=== PATIENT | female | born 1995 | race Caucasian/White ===

== ENCOUNTER 2017-10-15 05:42 | Emergency (ER) | payer OTHER ==
[~2017-10-15] VITALS: Ht 167.6 cm; Wt 75.0 kg
[2017-10-15] MEDS ORDERED: NS 1,000 ML IV ONE (07:30)
[2017-10-15 08:05] LABS: BASO % 0.2 % (0.0-1.0); EOS # 0.1 10^3/uL (0.0-0.50); EOS % 1.2 % (0.0-3.0); IMMATURE GRANULOCYTE % 0.2 % (0-0); LYMPH # 1.7 10^3/uL (1.5-6.5); LYMPH % 29.7 % (24.0-44.0); MEAN CORPUSCULAR HGB CONC 34.4 g/dl (32.0-36.5); MEAN CORPUSCULAR VOLUME 84.3 fl (80.0-96.0); MONO # 0.4 10^3/uL (0.0-0.8); MONO % 6.2 % (0.0-5.0); NEUTROPHILS # 3.6 10^3/uL (1.8-7.7); NEUTROPHILS % 62.5 % (36.0-66.0); PLATELET COUNT, AUTOMATED 273 10^3/uL (150-450); WHITE BLOOD COUNT 5.8 10^3/uL (4.0-10.0)
[2017-10-15 08:34] LABS: ALBUMIN 3.8 GM/DL (3.2-5.2); ALBUMIN/GLOBULIN RATIO 1.09 (1.00-1.93); ALKALINE PHOSPHATASE 87 U/L (45-117); ALT/SGPT 22 U/L (12-78); ANION GAP 7 MEQ/L (8-16); AST/SGOT 14 U/L (7-37); BILIRUBIN,DIRECT 0.2 MG/DL (0.0-0.2); BILIRUBIN,TOTAL 0.9 MG/DL (0.2-1.0); BLOOD UREA NITROGEN 5 MG/DL (7-18); CALCIUM LEVEL 9.1 MG/DL (8.5-10.1); CARBON DIOXIDE LEVEL 25 MEQ/L (21-32); CHLORIDE LEVEL 108 MEQ/L (98-107); GLOMERULAR FILTRATION RATE > 60.0 (>60); GLUCOSE, FASTING 93 MG/DL (70-105); POTASSIUM SERUM 3.8 MEQ/L (3.5-5.1); SODIUM LEVEL 140 MEQ/L (136-145); TOTAL PROTEIN 7.3 GM/DL (6.4-8.2)
--- NOTE | 2017-10-15 08:39 | REP ---
Clinical: Abdominal pain. Rule out ectopic . Technique: Transabdominal pelvic ultrasound followed by transvaginal examination for better evaluation of the endometrium and adnexa with color Doppler evaluation of the ovaries. Findings: Heterogenous retroverted uterus measures 7.9 x 4.5 x 5.3 cm. The endometrial complex measures 15 mm thickness. No discrete intrauterine is identified. Bilateral ovaries are normal in appearance and vascularity without evidence for torsion. Right ovary measures 2.3 x 1.2 x 1.7 cm ; R I = 0.50 . Left ovary measures 4.5 x 2.5 x 2.6 cm with 3.1 cm hemorrhagic presumed corpus luteal cyst ; R I = 0.55 . Mild free fluid in the pelvis no adnexal mass lesion identified . Impression: Thickened endometrial complex suggesting decidual reaction without evidence for intrauterine . Differential diagnosis includes missed , early and less likely ectopic cannot be excluded. Correlation with HCG levels required. Signed by Trent Montoya MD 10/15/2017 08:30 A
[2017-10-15 09:54] VITALS: BP 112/66
--- NOTE | 2017-10-15 18:29 | ECGEPIP ---
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
== END 2017-10-15 10:08 | disposition home or self-care (01) ==
LOC: M ED 05:42
DX: O99.89 Other specified diseases and conditions complicating pregnancy, childbirth and the puerperium (principal); R55 Syncope and collapse; Z3A.01 Less than 8 weeks gestation of pregnancy

== ENCOUNTER → 2017-12-13 | Outpatient (CLI) | payer OTHER ==
[2017-12-13 20:25] LABS: BASO % 0.3 % (0.0-1.0); EOS # 0.1 10^3/uL (0.0-0.50); EOS % 1.3 % (0.0-3.0); HEMATOCRIT 36.3 % (36.0-47.0); HEMOGLOBIN 12.5 g/dl (12.0-16.0); IMMATURE GRANULOCYTE % 0.1 % (0-0); LYMPH # 2.3 10^3/uL (1.5-6.5); LYMPH % 28.9 % (24.0-44.0); MEAN CORPUSCULAR HEMOGLOBIN 29.7 pg (27.0-33.0); MEAN CORPUSCULAR HGB CONC 34.4 g/dl (32.0-36.5); MEAN CORPUSCULAR VOLUME 86.2 fl (80.0-96.0); MONO # 0.5 10^3/uL (0.0-0.8); MONO % 6.9 % (0.0-5.0); NEUTROPHILS # 4.9 10^3/uL (1.8-7.7); NEUTROPHILS % 62.5 % (36.0-66.0); PLATELET COUNT, AUTOMATED 264 10^3/uL (150-450); RED BLOOD COUNT 4.21 10^6/uL (4.00-5.40); RED CELL DISTRIBUTION WIDTH 12.1 % (11.5-14.5); WHITE BLOOD COUNT 7.8 10^3/uL (4.0-10.0)
[2017-12-13 23:34] LABS: CHLAMYDIA DNA AMPLIFICATION NEGATIVE (NEGATIVE); GC DNA AMPLIFICATION NEGATIVE (NEGATIVE)
[2017-12-14 09:50] LABS: RUBELLA IgG QUALITATIVE IMMUNE (IMMUNE)
[2017-12-14 09:57] LABS: HBsAg Prenatal NEGATIVE (NEGATIVE)
[2017-12-14 10:25] LABS: HIV 1&2 SCREEN CENTAUR NEGATIVE (NEGATIVE)
== END ==
LOC: M SMT 14:39
DX: Z34.81 Encounter for supervision of other normal pregnancy, first trimester (principal); Z3A.08 8 weeks gestation of pregnancy
CPT/HCPCS: 86762

== ENCOUNTER → 2018-01-07 | Outpatient (CLI) | payer OTHER | LOC: M SMT 11:50 | DX: Z34.82 Encounter for supervision of other normal pregnancy, second trimester (principal) ==

== ENCOUNTER → 2018-03-27 | Outpatient (CLI) | payer OTHER ==
[2018-03-27 13:13] LABS: BASO % 0.1 % (0.0-1.0); EOS # 0.1 10^3/uL (0.0-0.50); EOS % 0.9 % (0.0-3.0); HEMATOCRIT 35.8 % (36.0-47.0); HEMOGLOBIN 11.9 g/dl (12.0-15.5); IMMATURE GRANULOCYTE % 0.3 % (0-3.0); LYMPH # 1.9 10^3/uL (1.5-6.5); LYMPH % 20.8 % (24.0-44.0); MEAN CORPUSCULAR HEMOGLOBIN 29.7 pg (27.0-33.0); MEAN CORPUSCULAR HGB CONC 33.2 g/dl (32.0-36.5); MEAN CORPUSCULAR VOLUME 89.3 fl (80.0-96.0); MONO # 0.5 10^3/uL (0.0-0.8); MONO % 5.7 % (0.0-5.0); NEUTROPHILS # 6.7 10^3/uL (1.8-7.7); NEUTROPHILS % 72.2 % (36.0-66.0); PLATELET COUNT, AUTOMATED 253 10^3/uL (150-450); RED BLOOD COUNT 4.01 10^6/uL (4.00-5.40); RED CELL DISTRIBUTION WIDTH 12.7 % (11.5-14.5); WHITE BLOOD COUNT 9.2 10^3/uL (4.0-10.0)
[2018-03-27 14:38] LABS: GLUCOSE CHALLENGE TEST 1 HOUR 88 MG/DL (LESS THAN 140)
== END ==
LOC: M SMT 08:07
DX: Z34.82 Encounter for supervision of other normal pregnancy, second trimester (principal)

== ENCOUNTER → 2018-06-03 | Outpatient (REF) | payer OTHER | LOC: M LAB REF 12:55 | DX: Z34.83 Encounter for supervision of other normal pregnancy, third trimester (principal); Z3A.00 Weeks of gestation of pregnancy not specified ==

== ENCOUNTER 2018-06-24 13:52 | Inpatient (IN) | payer OTHER ==
[2018-06-24] MEDS ORDERED: LR 1,000 ML IV (14:13)
[2018-06-24] MEDS: LACTATED RINGER'S 1000 ML IV (14:35)
[2018-06-24 14:42] LABS: HEMATOCRIT 39.2 % (36.0-47.0); HEMOGLOBIN 13.5 g/dl (12.0-15.5); MEAN CORPUSCULAR HGB CONC 34.4 g/dl (32.0-36.5); MEAN CORPUSCULAR VOLUME 84.1 fl (80.0-96.0); PLATELET COUNT, AUTOMATED 233 10^3/uL (150-450); RED BLOOD COUNT 4.66 10^6/uL (4.00-5.40); RED CELL DISTRIBUTION WIDTH 13.1 % (11.5-14.5); WHITE BLOOD COUNT 14.1 10^3/uL (4.0-10.0)
[2018-06-24] MEDS: PENICILLIN G POTASSIUM IV 5 MU in D5W MINI-BAG PLUS 100 ML IV (14:43)
[2018-06-24] MEDS ORDERED: OXYTOCIN 30 UNITS IN 0.9% NaCl 500ML IV BAG (J2590) As Ordered (15:36)
[2018-06-24 15:44] LABS: CORD GAS ABE A -11.8; CORD GAS HCO3 A 13.9 MEQ/L; CORD GAS O2 SAT A 96.2 %; CORD GAS PCO2 A 32.3 mmHg; CORD GAS PH A 7.253 UNITS; CORD GAS PO2 A 77.4 mmHg; CORD GAS SBC A 15.6 MEQ/L; CORD GAS TCO2 A 14.9 MEQ/L
[2018-06-24 15:45] LABS: CORD GAS ABE V -12.4; CORD GAS HCO3 V 14.2 MEQ/L; CORD GAS O2 SAT V 82.8 %; CORD GAS PCO2 V 35.7 mmHg; CORD GAS PH V 7.219 UNITS; CORD GAS PO2 V 47.3 mmHg; CORD GAS SBC V 14.8 MEQ/L; CORD GAS TCO2 V 15.3 MEQ/L
[2018-06-24] MEDS: OXYTOCIN DRIP 30 UNITS in APPROPRIATE DILUENT 1 EA IV (16:09)
[2018-06-24] MEDS ORDERED: DIBUCAINE 1% OINTMENT 30GM TOP (16:15)
[2018-06-24] MEDS ORDERED: ACETAMINOPHEN 500 MG TAB PO (16:15)
[2018-06-24] MEDS ORDERED: IBUPROFEN 800 MG TAB PO (16:15)
[2018-06-24] MEDS ORDERED: MEASLES,MUMPS,RUBELLA VACCINE INJ (MMR-II) (90707) SC (16:15)
[2018-06-24] MEDS ORDERED: ANUSOL HC CREAM 30GM TOP (16:15)
[2018-06-24] MEDS: LIDOCAINE 1% MDV 20ML VIAL INFIL (16:15)
[2018-06-24] MEDS ORDERED: METHYLERGONOVINE MALEATE 0.2 MG TAB PO (16:15)
[2018-06-24] MEDS ORDERED: MOM 30ML SUSPENSION UDC PO (16:15)
[2018-06-24] MEDS ORDERED: DOCUSATE SODIUM 100 MG CAP PO (16:15)
[2018-06-24] MEDS ORDERED: RHOGAM 300 MCG (1500 IU) INJ (J2790) IM (16:15)
[2018-06-24] MEDS ORDERED: PENICILLIN G POTASSIUM IV 2.5 MU in APPROPRIATE DILUENT 1 EA IV (19:00)
[2018-06-25] MEDS: PRENATAL VITAMINS CHEWABLE TABLET PO (09:20)
[2018-06-26] MEDS: PRENATAL VITAMINS CHEWABLE TABLET PO (08:02)
== END 2018-06-26 10:10 | disposition home or self-care (01) | DRG 775 ==
LOC: M LDO 13:52 → M LDI 14:11 → M OBS 17:50
PROVIDERS: Advanced Practice Midwife
PROC: 10E0XZZ Delivery of Products of Conception, External Approach (ICD-10-PCS; principal; 2018-06-24)
PROC: 0KQM0ZZ Repair Perineum Muscle, Open Approach (ICD-10-PCS; 2018-06-24)
DX: O62.3 Precipitate labor (principal); Z3A.39 39 weeks gestation of pregnancy; O99.824 Streptococcus B carrier state complicating childbirth; O70.1 Second degree perineal laceration during delivery; Z37.0 Single live birth